=== PATIENT | male | born 1970 | race Caucasian/White ===

== ENCOUNTER 2020-12-09 09:18 | Outpatient (REF) | payer OTHER, SELFPAY ==
[2020-12-09 11:39] LABS: Alanine Aminotransferase 24 U/L (0-40); Albumin Level 4.3 g/dL (3.5-5.0); Alkaline Phosphatase 55 U/L (39-117); Anion Gap 15 (12-20); Aspartate Amino Transferase 22 U/L (5-37); Bilirubin Total 0.9 mg/dL (0.0-1.0); Blood Urea Nitrogen 14 mg/dL (9-16); Calcium 8.7 mg/dL (8.4-10.2); Carbon Dioxide 29 mmol/L (22-29); Chloride 104 mmol/L (96-108); Cholesterol 199 mg/dL; Estimated Glomerular Filt Rate > 60; Glucose Fasting 93 mg/dL (60-99); HDL Cholesterol 50 mg/dL; LDL Cholesterol Calculated 114 mg/dl; Potassium 4.6 mmol/L (3.3-5.1); Sodium 143 mmol/L (135-145); Total Protein 7.4 g/dL (6.5-8.0); Triglycerides 176 mg/dL
[2020-12-09 12:00] LABS: Prostate Specific Antigen Scr 0.34 ng/mL (<0.05-4.0); TSH reflex Free T4 3.51 uIU/mL (0.32-4.0)
== END 2020-12-09 09:19 | disposition home or self-care (01) ==
LOC: HO.HMGCLDS 09:18
PROVIDERS: PCP Nurse Practitioner Family; Visit Provider Nurse Practitioner Family
DX: Z00.00 Encounter for general adult medical examination without abnormal findings (principal); Z12.5 Encounter for screening for malignant neoplasm of prostate; Z80.42 Family history of malignant neoplasm of prostate
CPT/HCPCS: 36415; 80053; 80061; 84153; 84443

== ENCOUNTER 2021-12-09 08:13 | Outpatient (REF) | payer OTHER, SELFPAY ==
[2021-12-09 11:17] LABS: Appearance Urine HAZY; Color Urine YELLOW; Glucose Urine UA NEG (NEG); Leukocyte Esterase Urine NEG (NEG); Nitrite Urine NEG (NEG); PH 6.5 (5.0-8.0); Urine Blood NEG (NEG); Urine Ketones NEG (NEG); Urine Protein NEG (NEG-TRACE)
[2021-12-09 12:06] LABS: Alanine Aminotransferase 33 U/L (0-40); Albumin Level 4.2 g/dL (3.5-5.0); Alkaline Phosphatase 54 U/L (39-117); Anion Gap 13 (12-20); Aspartate Amino Transferase 21 U/L (5-37); Bilirubin Total 0.9 mg/dL (0.0-1.0); Blood Urea Nitrogen 14 mg/dL (9-16); Calcium 9.2 mg/dL (8.4-10.2); Carbon Dioxide 27 mmol/L (22-29); Chloride 107 mmol/L (96-108); Cholesterol 197 mg/dL; Estimated Glomerular Filt Rate > 60; Glucose Fasting 99 mg/dL (60-99); HDL Cholesterol 42 mg/dL; LDL Cholesterol Calculated 116 mg/dl; Potassium 4.3 mmol/L (3.3-5.1); Sodium 143 mmol/L (135-145); Total Protein 7.3 g/dL (6.5-8.0); Triglycerides 197 mg/dL
[2021-12-09 12:08] LABS: Prostate Specific Antigen Scr 0.33 ng/mL (<0.05-4.0); TSH reflex Free T4 1.98 uIU/mL (0.32-4.0)
== END 2021-12-09 08:14 | disposition home or self-care (01) ==
LOC: HO.HMGCLDS 08:13
PROVIDERS: PCP Nurse Practitioner Family; Visit Provider Nurse Practitioner Family
DX: Z00.00 Encounter for general adult medical examination without abnormal findings (principal); Z13.220 Encounter for screening for lipoid disorders; Z13.29 Encounter for screening for other suspected endocrine disorder; Z12.5 Encounter for screening for malignant neoplasm of prostate; Z80.42 Family history of malignant neoplasm of prostate
CPT/HCPCS: 36415; 80053; 80061; 81003; 84153; 84443

== ENCOUNTER 2022-03-04 07:48 | Outpatient (REF) | payer OTHER, SELFPAY ==
[2022-03-04 09:16] LABS: Hematocrit 43.1 % (42.0-52.0); Hemoglobin 14.6 g/dl (14.0-18.0); Mean Corpuscular HGB Conc 33.9 g/dl (31.0-36.0); Mean Corpuscular Hemoglobin 30.5 pg (27.0-33.0); Mean Platelet Volume 10.4 fL (9.4-12.4); Platelet Count 344 X10*3/uL (160-400); Red Blood Count 4.79 X10*6/uL (4.60-5.80); White Blood Count 9.5 X10*3/uL (4.8-10.8)
== END 2022-03-04 07:49 | disposition home or self-care (01) ==
LOC: HO.LAB 07:48
PROVIDERS: PCP Nurse Practitioner Family; Referring Provider Nurse Practitioner Family; Visit Provider Nurse Practitioner Family
DX: Z01.818 Encounter for other preprocedural examination (principal)
CPT/HCPCS: 36415; 85027; 99202

== ENCOUNTER 2022-05-11 13:00 | Outpatient (RCR) | payer OTHER, SELFPAY | END 2022-06-02 16:30 | disposition home or self-care (01) | LOC: HO.OT 13:00 | PROVIDERS: PCP Nurse Practitioner Family; Visit Provider Orthopaedic Surgery | DX: S69.81XA Other specified injuries of right wrist, hand and finger(s), initial encounter (principal); M25.521 Pain in right elbow; G89.29 Other chronic pain; M24.021 Loose body in right elbow | CPT/HCPCS: 97110; 97140; 97166 ==

== ENCOUNTER 2022-08-03 09:04 | Outpatient (REF) | payer OTHER, SELFPAY ==
[2022-08-03 11:19] LABS: MANUAL DIFF FLAG NO
[2022-08-03 11:21] LABS: Appearance Urine Turbid; Color Urine Yellow; Glucose Urine UA Negative (Negative); Leukocyte Esterase Urine Negative (Negative); Nitrite Urine Negative (Negative); PH 5.5 (5.0-9.0); Specific Gravity - Urine 1.025 (1.005-1.025); Urine Blood Negative (Negative); Urine Ketones Negative (Negative); Urine Protein Negative (Neg-Trace)
[2022-08-03 11:24] LABS: Basophils Absolute Auto 0.1 X10*3/uL (0.0-0.2); Basophils Percent Auto 0.5 % (0-2); Eosinophils Absolute Auto 0.2 X10*3/uL (0.0-0.4); Eosinophils Percent Auto 2.2 % (0-4); Hematocrit 46.3 % (42.0-52.0); Hemoglobin 15.4 g/dl (14.0-18.0); Imm Gran Abs Auto 0.07 X10*3/uL (0.00-0.03); Imm Gran Pct Auto 0.7 % (0.0-0.4); Lymphocytes Absolute Auto 2.4 X10*3/uL (1.2-4.9); Lymphocytes Percent Auto 22.8 % (20-40); Mean Corpuscular HGB Conc 33.3 g/dl (31.0-36.0); Mean Corpuscular Hemoglobin 29.8 pg (27.0-33.0); Mean Corpuscular Volume 89.7 fL (80.0-98.0); Mean Platelet Volume 11.2 fL (9.4-12.4); Monocytes Absolute Auto 0.9 X10*3/uL (0.1-1.2); Monocytes Percent Auto 8.5 % (2-11); Neutrophils Percent Auto 65.3 % (45-73); Platelet Count 266 X10*3/uL (160-400); Red Blood Count 5.16 X10*6/uL (4.60-5.80); Red Cell Distribution Width 12.5 % (11.0-16.0); White Blood Count 10.7 X10*3/uL (4.8-10.8)
[2022-08-03 12:08] LABS: Alanine Aminotransferase 34 U/L (0-40); Albumin Level 4.2 g/dL (3.5-5.0); Alkaline Phosphatase 60 U/L (39-117); Anion Gap 17 (12-20); Aspartate Amino Transferase 27 U/L (5-37); Blood Urea Nitrogen 14 mg/dL (9-16); Carbon Dioxide 25 mmol/L (22-29); Chloride 103 mmol/L (96-108); Cholesterol 206 mg/dL; Estimated Glomerular Filt Rate > 60; Glucose Fasting 106 mg/dL (60-99); HDL Cholesterol 44 mg/dL; LDL Cholesterol Calculated 114 mg/dl; Potassium 4.5 mmol/L (3.3-5.1); Sodium 140 mmol/L (135-145); TSH reflex Free T4 2.34 uIU/mL (0.32-4.0); Total Protein 7.5 g/dL (6.5-8.0); Triglycerides 241 mg/dL
== END 2022-08-03 09:05 | disposition home or self-care (01) ==
LOC: HO.HMGCLDS 09:04
PROVIDERS: PCP Nurse Practitioner Family; Visit Provider Nurse Practitioner Family
DX: I10 Essential (primary) hypertension (principal)
CPT/HCPCS: 36415; 80053; 80061; 81003; 84443; 85025

== ENCOUNTER 2022-10-05 10:31 | Outpatient (REF) | payer OTHER, SELFPAY ==
[2022-10-05 14:02] LABS: Cholesterol 216 mg/dL; HDL Cholesterol 48 mg/dL; LDL Cholesterol Calculated 143 mg/dl; Triglycerides 126 mg/dL
== END 2022-10-05 10:32 | disposition home or self-care (01) ==
LOC: HO.HMGCLDS 10:31
PROVIDERS: PCP Nurse Practitioner Family; Visit Provider Nurse Practitioner Family
DX: E78.1 Pure hyperglyceridemia (principal)
CPT/HCPCS: 36415; 80061

== ENCOUNTER 2022-10-19 11:32 | Day surgery (SDC) | payer OTHER, SELFPAY ==
[2022-10-13 15:37] VITALS: BMI 36.8
--- NOTE | 2022-10-18 10:33 | HO.ANESPROP2 ---
Documented by User: Olivia Albright NP 10/18/22 10:34 HPI - Anesthesia Eval Consult details Narrative: 52yo M for Colonoscopy PMFSH Active Problems Active Problems: All Active Problems (Updated 10/13/22 @ 15:37 by Melinda Gilman RN) Physical exam (Acute) Family hx of prostate cancer (Acute) Adverse effect of COVID-19 vaccine (Acute) Screening PSA (prostate specific antigen) (Acute) Screening for colon cancer (Acute) High triglycerides (Acute) Hypertension (Acute) Adenoma of right parotid gland (Acute) Past Medical History Medical History Adenoma of right parotid gland Arthritis Disease of salivary gland, unspecified Hearing loss Hypertension Postoperative nausea Family History Family History Father Prostate CA Surgical History Surgical History History of ear surgery History of surgery on arm Hx of elbow surgery Hx of parotidectomy Social History Social History Housing: House Are you a primary medicare insurance specialist to a significant other at home: No Do you presently have visiting nurse or other home services: No Alcohol intake: current Alcohol intake frequency: holidays/special occasions only Patient Tobacco Use Status: Former Tobacco user Quit Date: age 22 Tobacco use type: Cigarette Years Smoked: 4 e-Cigarette/Vaping Use: Never Used Second Hand Smoke Exposure: No Use of substances other than those prescribed or required for medical reasons: No Have you been hit, kicked, punched, or otherwise hurt by someone within the past year? If so, by whom?: No Are you DNR?: No Advance Directives: No Advance Directives Information Provided: Yes (brochure mailed) Advance Directives on File: No Recently lost weight without trying: No Eating poorly because of decreased appetite: No Nutrition Risks: No Nutritional Risk Poor oral hygiene: No service: No Current occupational status: retired Cognitive needs: No Hearing needs: No Vision needs: No Meds Allergies Allergy/AdvReac Type Severity Reaction Status Date / Time No Known Allergies Allergy Verified 09/12/22 08:10 Home Medications Medication Instructions Recorded Confirmed Last Taken Type multivitamin (Multiple Vitamins 1 tab PO DAILY 03/04/22 10/13/22 Unknown History tablet) Exam Exam Date and Time: October 18, 2022 1033 Height,Weight and Vital Signs: Height 6 ft Weight 123.377 kg Pertinent Lab Results Pertinent Lab Results: Laboratory Tests 08/03/22 08/03/22 09:14 09:14 WBC 10.7 Hgb 15.4 Hct 46.3 Plt Count 266 Sodium 140 Potassium 4.5 Chloride 103 Carbon Dioxide 25 BUN 14 Creatinine 0.89 Assessment and Plan Assessment Anesthesia Assessment: Chart Reviewed Documented by User: Jarret Skelton MD 10/19/22 13:18 PMFSH Past Medical History Medical History Adenoma of right parotid gland Arthritis Disease of salivary gland, unspecified Hearing loss Hypertension Postoperative nausea Family History Family History Father Prostate CA Family history of problems with anesthesia: No Surgical History Surgical History History of ear surgery History of surgery on arm Hx of elbow surgery Hx of parotidectomy History of Problems with Anesthesia: No Social History Social History Housing: House Are you a primary medicare insurance specialist to a significant other at home: No Do you presently have visiting nurse or other home services: No Alcohol intake: current Alcohol intake frequency: holidays/special occasions only Patient Tobacco Use Status: Former Tobacco user Quit Date: age 22 Tobacco use type: Cigarette Years Smoked: 4 e-Cigarette/Vaping Use: Never Used Second Hand Smoke Exposure: No Use of substances other than those prescribed or required for medical reasons: No Have you been hit, kicked, punched, or otherwise hurt by someone within the past year? If so, by whom?: No Are you DNR?: No Advance Directives: No Advance Directives Information Provided: Yes (brochure mailed) Advance Directives on File: No Recently lost weight without trying: No Eating poorly because of decreased appetite: No Nutrition Risks: No Nutritional Risk Poor oral hygiene: No service: No Current occupational status: retired Cognitive needs: No Hearing needs: No Vision needs: No Meds Allergies Allergy/AdvReac Type Severity Reaction Status Date / Time No Known Allergies Allergy Verified 09/12/22 08:10 Home Medications Medication Instructions Recorded Confirmed Last Taken Type multivitamin (Multiple Vitamins 1 tab PO DAILY 03/04/22 10/13/22 Unknown History tablet) Exam Airway Mallampati Class: IV TM Dist: >3cm Neck ROM: Full Heart: rrr Lungs: clear Assessment and Plan Final Anesthetic Review Family History of Problems with Anesthesia: No History of Problems with Anesthesia: No NPO: Yes ASA Class: II Final Preanesthetic Review: No Changes in Pt Med Stat, Meds/Allgs Chart Reviewed, Consent Obtained/Reviewed and Anes Risks/Benef Reviewed Patient Risk: Intermediate Procedure Risk: Low Anesthetic Plan Anesthetic Plan: MAC: Disposition: Standard PACU
--- NOTE | 2022-10-19 11:39 | MHC.SHP ---
Pre-Procedural Eval Section A Date of Service: 10/19/22 Section B Chief Complaint: screening Relevant Family History (Specify if Yes): No Relevant Social History: None Present Medications: see Short Stay Collaborative assessment Medical History: Significant History (Adenoma of right parotid gland Arthritis Disease of salivary gland, unspecified Hearing loss Hypertension Postoperative nausea) History of Previous Operations: Relevant previous surgery/procedure and date(s) (History of ear surgery History of surgery on arm Hx of elbow surgery Hx of parotidectomy) Allergies: Allergies Allergy/AdvReac Type Severity Reaction Status Date / Time No Known Allergies Allergy Verified 09/12/22 08:10 Review of Systems Sugical H&P ROS: Negative: Constitution, Cardiovascular, Respiratory, Neurological, Psychiatric, Hem-Onc, Allergic/Immunologic, Gastrointestinal, Genitourinary, Musculoskeletal, Integumentary, Endocrine and Eyes/Ears/Nose/Throat Exam Surgical H&P Exam: Normal: HEENT, Normal: Heart, Normal: Lungs, Normal: Extremities, Normal: Abdomen, Normal: Skin and Normal: Neurological Plan Diagnosis/Plan: Unchanged I have reviewed the history and physical and performed a pertinent physical examination on my patient. No changes have occurred unless specified. Time Spent With Patient Time: Total time managing care of this patient today ____ minutes.
[2022-10-19 12:51] VITALS: BP 135/81; PULSE 67; RESP 16; TEMP 36.7; O2SAT 98
[2022-10-19] MEDS: Lactated Ringers 1,000 ML 100 ML IVCONT (12:52)
--- NOTE | 2022-10-19 13:05 | W.PM.OPN ---
Operative Note Operative Note Date of Service: 10/19/22 Narrative: Operative Information Procedure Description: Colonoscopy Indication: screening Anesthesia: MAC COLONOSCOPY Instrument: Olympus variable stiffness pediatric scope 190L Colonoscopy Monitoring: Vital signs and clinical assessment, continuous EKG monitoring, Pulse oximetry, Carbon Dioxide monitoring and blood pressure monitoring were done throughout the procedure. Colon withdrawal time was 10 minutes. Procedure: The patient was placed in the left lateral decubitis position and pre-procedure medications were administered. After a digital rectal examination of the ano-rectum, the video colonoscope was inserted into the rectum and advanced through the colon to the cecum/TI. The colonoscope was slowly withdrawn in a retrograde panoramic fashion and the colon mucosa was carefully examined including a retroflexed view of the rectum. Findings and interventions are described below. Procedure Difficulty: easy Findings: Terminal Ileum-normal Cecum:normal Ascending Colon: normal Transverse Colon -normal Descending Colon:normal Sigmoid Colon: normal Rectum: Retroflexion with small internal hemorrhoids, grade I Anorectum - normal Colon preparation: [place] Bowel Preparation Scale Right colon; 2 Transverse colon: 2 Left colon; 2 (0 = Unprepared colon segment with mucosa not seen due to solid stool that cannot be cleared. 1 = Portion of mucosa of the colon segment seen, but other areas of the colon segment not well seen due to staining, residual stool and/or opaque liquid. 2 = Minor amount of residual staining, small fragments of stool and/or opaque liquid, but mucosa of colon segment seen well. 3 = Entire mucosa of colon segment seen well with no residual staining, small fragments of stool or opaque liquid) Impression and Post Procedure Diagnosis: internal hemorrhoids Plan: High fiber diet leaflet Avoid straining at stool, epsom salts and sitz bath, anusol supps or cream Repeat Colonoscopy in 10 years or earlier if clinically indicated Above findings were reviewed with the patient and relevant handouts were provided if indicated.
[2022-10-19 13:49] VITALS: BP 137/87; PULSE 78; RESP 20; TEMP 36.3; O2SAT 96
[2022-10-19 14:06] VITALS: BP 125/83; PULSE 69; RESP 20; O2SAT 98
[2022-10-19 14:21] VITALS: BP 122/78; PULSE 63; RESP 20; O2SAT 97
== END 2022-10-19 15:37 | disposition home or self-care (01) ==
PROVIDERS: PCP Nurse Practitioner Family; Visit Provider Internal Medicine Gastroenterology
PROC: 0DJD8ZZ Inspection of Lower Intestinal Tract, Via Natural or Artificial Opening Endoscopic (ICD-10-PCS; CPT 45378; principal; 2022-10-19 13:00)
DX: Z12.11 Encounter for screening for malignant neoplasm of colon (principal); K64.0 First degree hemorrhoids; K11.9 Disease of salivary gland, unspecified; Z90.89 Acquired absence of other organs; I10 Essential (primary) hypertension; H91.91 Unspecified hearing loss, right ear; Z79.899 Other long term (current) drug therapy; Z98.890 Other specified postprocedural states; Z87.891 Personal history of nicotine dependence
CPT/HCPCS: G0121

== ENCOUNTER → 2022-11-02 08:01 | Outpatient (BNVA) | payer OTHER, SELFPAY | PROVIDERS: PCP Nurse Practitioner Family; Referring Provider Nurse Practitioner Family; Visit Provider Nurse Practitioner Family | DX: K64.0 First degree hemorrhoids (principal); Z98.890 Other specified postprocedural states | CPT/HCPCS: 99212 ==

== ENCOUNTER 2022-12-13 10:40 | Outpatient (REF) | payer OTHER, SELFPAY ==
[2022-12-13 11:29] LABS: MANUAL DIFF FLAG NO
[2022-12-13 11:33] LABS: Basophils Percent Auto 0.5 % (0-2); Eosinophils Absolute Auto 0.2 X10*3/uL (0.0-0.4); Eosinophils Percent Auto 1.7 % (0-4); Hematocrit 45.7 % (42.0-52.0); Hemoglobin 15.3 g/dl (14.0-18.0); Imm Gran Abs Auto 0.07 X10*3/uL (0.00-0.03); Imm Gran Pct Auto 0.8 % (0.0-0.4); Lymphocytes Absolute Auto 2.4 X10*3/uL (1.2-4.9); Lymphocytes Percent Auto 27.3 % (20-40); Mean Corpuscular HGB Conc 33.5 g/dl (31.0-36.0); Mean Corpuscular Hemoglobin 29.8 pg (27.0-33.0); Mean Corpuscular Volume 89.1 fL (80.0-98.0); Mean Platelet Volume 10.5 fL (9.4-12.4); Monocytes Absolute Auto 0.8 X10*3/uL (0.1-1.2); Monocytes Percent Auto 9.1 % (2-11); Neutrophils Absolute Auto 5.4 x10*3/uL (2.0-8.3); Neutrophils Percent Auto 60.6 % (45-73); Platelet Count 368 X10*3/uL (160-400); Red Blood Count 5.13 X10*6/uL (4.60-5.80); Red Cell Distribution Width 12.4 % (11.0-16.0); White Blood Count 8.9 X10*3/uL (4.8-10.8)
[2022-12-13 12:33] LABS: Alanine Aminotransferase 68 U/L (0-40); Albumin Level 4.3 g/dL (3.5-5.0); Alkaline Phosphatase 55 U/L (39-117); Anion Gap 18 (12-20); Aspartate Amino Transferase 34 U/L (5-37); Blood Urea Nitrogen 14 mg/dL (9-16); Calcium 9.4 mg/dL (8.4-10.2); Carbon Dioxide 25 mmol/L (22-29); Chloride 102 mmol/L (96-108); Cholesterol 177 mg/dL; Estimated Glomerular Filt Rate > 60; Glucose Fasting 102 mg/dL (60-99); HDL Cholesterol 51 mg/dL; LDL Cholesterol Calculated 90 mg/dl; Potassium 4.5 mmol/L (3.3-5.1); Sodium 140 mmol/L (135-145); Total Protein 7.4 g/dL (6.5-8.0); Triglycerides 184 mg/dL
[2022-12-13 12:34] LABS: Prostate Specific Antigen Scr 0.38 ng/mL (<0.05-4.0)
[2022-12-13 13:59] LABS: Appearance Urine Turbid; Color Urine Yellow; Glucose Urine UA Negative (Negative); Leukocyte Esterase Urine Negative (Negative); Nitrite Urine Negative (Negative); Urine Blood Negative (Negative); Urine Ketones Negative (Negative); Urine Protein Negative (Neg-Trace)
== END 2022-12-13 10:41 | disposition home or self-care (01) ==
LOC: HO.HMGCLDS 10:40
PROVIDERS: PCP Nurse Practitioner Family; Visit Provider Nurse Practitioner Family
DX: Z00.00 Encounter for general adult medical examination without abnormal findings (principal); R74.8 Abnormal levels of other serum enzymes; Z80.42 Family history of malignant neoplasm of prostate; Z12.5 Encounter for screening for malignant neoplasm of prostate
CPT/HCPCS: 36415; 80053; 80061; 81003; 84153; 84443; 85025

== ENCOUNTER 2022-12-22 08:17 | Outpatient (REF) | payer OTHER, SELFPAY ==
--- NOTE | ~2022-12-22 | US_ITS ---
EXAMINATION: US ABDOMEN COMPLETE CLINICAL INFORMATION: Abnormal levels of other serum enzymes. COMPARISON: None TECHNIQUE: Real-time imaging of the abdominal viscera. Technically limited study secondary to body habitus. FINDINGS: PANCREAS: Largely obscured by overlying bowel gas. ABDOMINAL AORTA: The proximal, mid, and distal segments are normal in caliber. INFERIOR VENA CAVA: Visualized portions are normal. LIVER: The liver is normal in size. The liver contour is normal. There is diffuse increased liver parenchymal echogenicity. No focal hepatic lesion. There is no intrahepatic biliary duct dilatation seen. GALLBLADDER: Normal. The gallbladder is physiologically distended without evidence of stones, sludge, polyps, wall thickening or pericholecystic fluid. COMMON BILE DUCT: Normal in caliber measuring 0.3 cm in diameter. RIGHT KIDNEY: A duplicated collecting system is suspected. No hydronephrosis. No renal calculi or focal parenchymal lesions. The kidney measures 13.2 cm in maximum dimension. LEFT KIDNEY: Normal. No hydronephrosis. No renal calculi or focal parenchymal lesions. The kidney measures 11.9 cm in maximum dimension. SPLEEN: Normal. The spleen measures 10.3 cm in maximum dimension. FREE FLUID: None. US/US abdomen complete IMPRESSION: There is generalized increase in hepatic echotexture, consistent with fatty infiltration or hepatocellular disease. Please correlate clinically. No focal hepatic mass or intrahepatic biliary dilatation is seen.
== END 2022-12-22 08:18 | disposition home or self-care (01) ==
LOC: HO.HMGCX 08:17
PROVIDERS: PCP Nurse Practitioner Family; Visit Provider Nurse Practitioner Family
DX: R74.8 Abnormal levels of other serum enzymes (principal)
CPT/HCPCS: 76700

== ENCOUNTER 2023-06-12 10:12 | Outpatient (AMB) | payer OTHER, SELFPAY ==
[2023-06-12 10:31] VITALS: BP 130/78; PULSE 89; O2SAT 95; BMI 37.9
--- NOTE | 2023-06-12 10:31 | A.OFFPC_ITS ---
Vital Signs 06/12/23 10:31 Height 6 ft Weight 279 lb 4 oz BMI 37.9 BP 130/78 Blood Pressure Location Rt brachial Position Sitting Pulse 89 Pulse Source Pulse Oximeter Pulse Oximetry (%) 95 Oxygen Delivery Method Room Air Intake Visit Reasons: 6 Month follow up Allergies No Known Allergies Allergy (Verified 06/12/23 11:28) Medication List - Last Reconciled 06/12/23 by BALTAZAR Cope losartan-hydrochlorothiazide 100-12.5 mg 1 tab PO DAILY multivitamin (Multiple Vitamins tablet) 1 tab PO DAILY omega-3 acid ethyl esters 2 caps PO BID rosuvastatin 5 mg PO DAILY Tobacco use date assessed: 06/12/23 Dental Screening Dental Screen Date: 06/12/23 Did you have a dental visit in the last 12 months?: Yes Did you have a dental problem in the last 6 months where you did not have access to dental care?: No Was dental information given to patient?: Patient has dentist HPI 6 Month follow up HPI Details HTN: Blood pressure is stable, managed with losartan- hydrochlorothiazide 100-12.5mg. Denies chest pain, shortness of breath, headache, dizziness, and blurred vision. [facility] Medical History Adenoma of right parotid gland Arthritis Disease of salivary gland, unspecified Hearing loss Hypertension Postoperative nausea Surgical History History of ear surgery History of surgery on arm Hx of colonoscopy Hx of elbow surgery Hx of parotidectomy Family History Father Prostate CA Social History Housing: House Are you a primary manager care management to a significant other at home: No Do you presently have visiting nurse or other home services: No Alcohol intake: current Alcohol intake frequency: holidays/special occasions only Patient Tobacco Use Status: Former Tobacco user Quit Date: age 22 Tobacco use type: Cigarette Years Smoked: 4 e-Cigarette/Vaping Use: Never Used Second Hand Smoke Exposure: No service: No Current occupational status: retired Cognitive needs: No Hearing needs: No Vision needs: No Questionnaire Thrive Questionnaire Date Thrive assessed: 12/12/22 JESUS-7 AMB Questionnaire JESUS-7 Date JESUS - 7 assessed: 12/12/22 Source: Developed by Drs. Kermit Oviedo, Elizabeth Lancaster, Ned Harrell and colleagues, with an educational seb from [employer]. Review of Systems Const Reports as per HPI Physical exam (Primary Care) Vital Signs: Last Vital Signs Pulse 89 06/12/23 10:31 BP 130/78 06/12/23 10:31 Pulse Ox 95 06/12/23 10:31 Oxygen Delivery Method Room Air 06/12/23 10:31 BMI result Body Mass Index 37.9 Tobacco/Smoking Status: Tobacco use Status Tobacco use date assessed 06/12/23 06/12/23 10:36 Patient Tobacco Use Status Former Tobacco user 06/12/23 10:31 Tobacco use type Cigarette 06/12/23 10:31 e-Cigarette/Vaping Use Never Used 06/12/23 10:31 Thrive Assessment: Date of Thrive Assessment Date Thrive assessed 12/12/22 06/12/23 10:31 Const General: cooperative Nutritional Appearance: obese Orientation/consciousness: patient oriented x3 Resp Effort & Inspection: normal respiratory effort Auscultation: clear to auscultation bilaterally Cardio Rate: regular rate Rhythm: regular rhythm Heart sounds: S1 normal heart sound present and S2 normal heart sound present Neuro General: patient oriented x3 Psych Appearance: grossly normal Mental Status: mental status grossly normal Speech and movement: Normal speech and movement present Affect: normal affect Attitude: cooperative Thought process: Normal thought process present Thought content: Normal thought content present Insight: Good insight present (Psych) Judgement: Good judgement present (Psych) Assessment and Plan Assessment & Plan (1) Hypertension: Code(s): I10 - Essential (primary) hypertension Plan: BP is stable, labs ordered (2) Screening PSA (prostate specific antigen): Code(s): Z12.5 - Encounter for screening for malignant neoplasm of prostate Plan The patient agreed to the use of a medical assisting instructor for this encounter. Scribed for BALTAZAR Castillo by Winter Piper medical assisting instructor, on 06/12/2023 at 10:40 EST. Orders: Orders Comprehensive [place]. Panel Fast Today I10 - Essential (primary) hypertension Lipid Panel Today I10 - Essential (primary) hypertension TSH reflex Free T4 Today I10 - Essential (primary) hypertension Complete Blood Count Auto Diff Today I10 - Essential (primary) hypertension UA CC w/rflx Micro + Cult Today I10 - Essential (primary) hypertension Prostate Specific Antigen Scr Today Z12.5 - Encounter for screening for malignant neoplasm of prostate Coding Level of Care Code Est Pt Level 3 (07147) Diagnoses Hypertension I10 Screening PSA (prostate specific antigen) Z12.5
== END 2023-06-12 11:27 | disposition home or self-care (01) ==
PROVIDERS: PCP Nurse Practitioner Family; Visit Provider Nurse Practitioner Family
DX: I10 Essential (primary) hypertension (principal); Z12.5 Encounter for screening for malignant neoplasm of prostate
CPT/HCPCS: 99213

== ENCOUNTER 2023-11-13 12:55 | Outpatient (REF) | payer MEDICARE, OTHER, MEDICAID, SELFPAY | END 2023-11-13 12:56 | disposition home or self-care (01) | LOC: HO.HMGCX 12:55 | PROVIDERS: PCP Nurse Practitioner Family; Visit Provider Nurse Practitioner Family | DX: M25.551 Pain in right hip (principal) | CPT/HCPCS: 73502 ==

== ENCOUNTER 2023-11-23 08:52 | Outpatient (AMB) | payer MEDICARE, MEDICAID, OTHER, SELFPAY ==
[2023-11-23 08:53] VITALS: BMI 37.9
--- NOTE | 2023-11-23 08:53 | A.OFFVIS_ITS ---
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 The patient states that he 1st injured his right hip in 2006 when he fell off his roof while removing snow. Patient states that after time his ribs and hip improved. He states that he has recently begun using his elliptical machine at home as well as his treadmill. He put his treadmill on 10 degrees of incline which seemed to aggravate his pain. He denies any numbness or tingling in either of his legs. He denies any groin pain. Allergies No Known Allergies Allergy (Verified 11/23/23 08:57) Medication List - Last Reconciled 11/23/23 by Yasir Valenzuela MD losartan-hydrochlorothiazide 100-12.5 mg 1 tab PO DAILY multivitamin (Multiple Vitamins tablet) 1 tab PO DAILY omega-3 acid ethyl esters 2 caps PO BID rosuvastatin 5 mg PO DAILY PFSH Medical History Postoperative nausea Arthritis Disease of salivary gland, unspecified Hearing loss Adenoma of right parotid gland Hypertension Surgical History Hx of colonoscopy Hx of elbow surgery Hx of parotidectomy History of surgery on arm History of ear surgery Family History Father Prostate CA Social History Housing: House Are you a primary tree care foreman to a significant other at home: No Do you presently have visiting nurse or other home services: No Alcohol intake: current Alcohol intake frequency: holidays/special occasions only Patient Tobacco Use Status: Former Tobacco user Quit Date: age 22 Tobacco use type: Cigarette Years Smoked: 4 e-Cigarette/Vaping Use: Never Used Second Hand Smoke Exposure: No service: No Current occupational status: retired Cognitive needs: No Hearing needs: No Vision needs: No Physical Exam Vital Signs: BMI result Body Mass Index 37.9 Const Other: Well-nourished well-developed very friendly male awake alert and oriented x3 in no acute distress Extrem Other: Bilateral lower extremity examination shows good capillary refill, no skin l esions noted, normal sensation light touch Right hip examination shows minimal discomfort with range of motion, tenderness over his bursa Results Reviewed Results Reviewed: X-rays of the patient's right hip show no acute bony abnormalities Assessment & Plan Assessment & Plan (1) Greater trochanteric bursitis of right hip: Code(s): M70.61 - Trochanteric bursitis, right hip Plan Mr. Sutton presents with pain along the lateral aspect of his right hip most likely due to greater trochanteric bursitis. I had a lengthy discussion with the patient regarding the treatment options. The patient does not wish for a cortisone injection. I did give him a prescription for a Medrol Dosepak. Activity modifications and massage gun use were discussed at length with the patient. He will follow up with me on an as-needed basis should his symptoms not plateau at an unacceptable level over the next few weeks. Feel free to call me at any time should questions regarding his orthopedic management arise. I spent 20 minutes in reviewing the patient's records and imaging studies, seeing the patient and documenting in the medical record. Medications: New methylprednisolone (Medrol (Lazaro)) PO PER PKG DIR 21 ea 0RF Coding Level of Care Code New Pt Level 2 (06853) Diagnoses Greater trochanteric bursitis of right hip M70.61
== END 2023-11-23 09:21 | disposition home or self-care (01) ==
PROVIDERS: PCP Nurse Practitioner Family; Visit Provider Orthopaedic Surgery
DX: M70.61 Trochanteric bursitis, right hip (principal)
CPT/HCPCS: 99202

== ENCOUNTER → 2023-11-23 08:52 | Outpatient (BNVA) | payer MEDICARE, MEDICAID, OTHER, SELFPAY | PROVIDERS: PCP Nurse Practitioner Family; Visit Provider Orthopaedic Surgery | DX: M70.61 Trochanteric bursitis, right hip (principal) | CPT/HCPCS: 99202 ==

== ENCOUNTER 2023-12-13 08:57 | Outpatient (AMB) | payer MEDICARE, OTHER, MEDICAID, SELFPAY ==
--- NOTE | 2023-12-13 09:02 | MHC.PC.OV ---
Vital Signs 12/13/23 09:03 Height 6 ft Weight 277 lb BMI 37.6 BP 118/80 Blood Pressure Location Lt brachial Position Sitting Pulse 79 Pulse Source Pulse Oximeter Pulse Oximetry (%) 95 Oxygen Delivery Method Room Air Intake Visit Reasons: PE Allergies No Known Allergies Allergy (Verified 12/13/23 09:05) Tobacco use date assessed: 12/13/23 Dental Screening Dental Screen Date: 12/13/23 Did you have a dental visit in the last 12 months?: Yes Did you have a dental problem in the last 6 months where you did not have access to dental care?: No Was dental information given to patient?: Patient has dentist HPI PE HPI Details Pt is here for a PE. Labs have already been ordered. Colon screen is up to date. Due for PSA, this has been ordered. Denies dribbling with urination, weak stream, and frequent nocturia. PFS Medical History Postoperative nausea Arthritis Disease of salivary gland, unspecified Hearing loss Adenoma of right parotid gland Hypertension Surgical History Hx of colonoscopy Hx of elbow surgery Hx of parotidectomy History of surgery on arm History of ear surgery Family History Father Prostate CA Social History Housing: House Are you a primary infant childcare provider to a significant other at home: No Do you presently have visiting nurse or other home services: No Alcohol intake: current Alcohol intake frequency: holidays/special occasions only Patient Tobacco Use Status: Former Tobacco user Quit Date: age 22 Tobacco use type: Cigarette Years Smoked: 4 e-Cigarette/Vaping Use: Never Used Second Hand Smoke Exposure: No service: No Current occupational status: retired Cognitive needs: No Hearing needs: No Vision needs: No Questionnaire PHQ-9 Over the last 2 weeks, how often have you been bothered by any of the following problems? 1. Little interest or pleasure in doing things: not at all 2. Feeling down, depressed, or hopeless: not at all 3. Trouble falling or staying asleep, or sleeping too much: more than half the days 4. Feeling tired or having little energy: more than half the days 5. Poor appetite or overeating: not at all 6. Feeling bad about yourself - or that you are a failure or have let yourself or your family down: not at all 7. Trouble concentrating on things, such as reading the newspaper or watching television: not at all 8. Moving or speaking so slowly that other people could have noticed. Or the opposite - being so fidgety or restless that you have been moving around a lot more than usual: not at all 9. Thoughts that you would be better off or of hurting yourself in some way: not at all Total score: 4 Source: Developed by Drs. Kermit Oviedo, Elizabeth Lancaster, Ned Harrell and colleagues, with an educational seb from [employer]. Thrive Questionnaire Date Thrive assessed: 12/13/23 I am a: Patient What is your living situation today?: I have a steady place to live Within the past 12 months, did the food you bought not last and you didn't have the money to get more?: Never true Within the past 12 months, did you worry whether your food would run out before you got money to buy more?: Never true Do you have trouble paying for medicines?: No Do you have trouble getting transportation to medical appointments?: No Do you have trouble paying your heating and electricity bill?: No Do you have trouble taking care of your child, family member or friend?: No Do you have trouble with day-to-day activities such as bathing, preparing meals, shopping, managing finances, etc.?: Yes Are you currently unemployed and looking for a job?: No Are you interested in more education?: Yes THRIVE Score: 0 AUDIT C Alcohol Use Questionnaire (AUDIT-C) 1. How often do you have a drink containing alcohol?: Never Total Score: 0 JESUS-7 AMB Questionnaire JESUS-7 Date JESUS - 7 assessed: 12/13/23 Feeling nervous, anxious, or on edge: 0 = Not at all Not being able to stop or control worryin = Not at all Worrying too much about different things: 0 = Not at all Trouble relaxin = Several days Being so restless that it is hard to sit still: 0 = Not at all Becoming easily annoyed or irritable: 3 = Nearly every day Feeling afraid as if something awful might happen: 0 = Not at all Total JESUS-7 score (0-4 normal; 5-9 mild; 10-14 moderate; 15-21 severe): 4 Source: Developed by Drs. Kermit Oviedo, Elizabeth Lancaster, Ned Harrell and colleagues, with an educational seb from [employer]. Review of Systems Const Denies chills and Denies fever(s) Eyes Denies blurry vision ENT Denies vertigo, Denies dizziness and Denies sore throat Card Denies chest pain at rest, Denies chest pain with activity, Denies diaphoresis, Denies dyspnea and Denies dyspnea on exertion Resp Denies cough, Denies dyspnea, Denies dyspnea on exertion and Denies wheezing GI Denies abdominal pain, Denies melena, Denies hematochezia, Denies constipation, Denies diarrhea and Denies loose stools Denies hematuria Musc Denies numbness and Denies tingling Skin/Breast Denies lesions Neuro Denies vertigo, Denies dizziness, Denies numbness and Denies tingling Psych Denies anxiety, Denies depression, Denies homicidal ideation, Denies suicidal ideation and Denies other (substance abuse) Aller/Immun Denies wheezing Physical exam (Primary Care) Vital Signs: Last Vital Signs Pulse 79 12/13/23 09:03 BP 118/80 12/13/23 09:03 Pulse Ox 95 12/13/23 09:03 Oxygen Delivery Method Room Air 12/13/23 09:03 BMI result Body Mass Index 37.6 Tobacco/Smoking Status: Tobacco use Status Tobacco use date assessed 12/13/23 12/13/23 09:07 Patient Tobacco Use Status Former Tobacco user 12/13/23 09:02 Tobacco use type Cigarette 12/13/23 09:02 e-Cigarette/Vaping Use Never Used 12/13/23 09:02 PHQ-9: PHQ-9 Score PHQ-9: Total score 4 12/13/23 09:28 Thrive Assessment: Date of Thrive Assessment Date Thrive assessed 12/13/23 12/13/23 09:28 Const General: cooperative Nutritional Appearance: obese Orientation/consciousness: patient oriented x3 HENMT Head: Yes normal to inspection, Yes normocephalic and Yes atraumatic Ears: TM's normal bilaterally Eyes General: appearance normal, both eyes and all related structures Alignment and Position: alignment normal and position normal Neck Neck: Yes normal visual inspection and Yes no lymphadenopathy Thyroid: Thyroid normal Resp Effort & Inspection: normal respiratory effort Auscultation: clear to auscultation bilaterally Cardio Rate: regular rate Rhythm: regular rhythm Heart sounds: S1 normal heart sound present, S2 normal heart sound present and no murmurs GI Other: diastasis rectus Palpation (GI): Soft to palpation and nontender Auscultation: normal bowel sounds Male General Exam: Yes normal external exam Penis: normal penis Scrotum: scrotum normal, testes descended bilaterally and no inguinal hernias Testes: no testicular mass Skin Rashes: no rashes Neuro General: patient oriented x3, moves all extremities, no focal motor deficits and deep tendon reflexes 2+ bilaterally Romberg Test: Negative Psych Appearance: grossly normal Mental Status: mental status grossly normal Speech and movement: Normal speech and movement present Affect: normal affect Attitude: cooperative Thought process: Normal thought process present Thought content: Normal thought content present Insight: Good insight present (Psych) Judgement: Good judgement present (Psych) Assessment and Plan Assessment & Plan (1) Physical exam: Code(s): Z00.00 - Encounter for general adult medical examination without abnormal findings Plan: Labs already ordered Plan The patient agreed to the use of a nuclear medicine medical director for this encounter. Scribed for BALTAZAR Castillo by Winter Piper nuclear medicine medical director, on 12/13/2023 at 09:10 EST. Coding Level of Care Code Est Pt Prev Care 40-64y(67921) Diagnoses Physical exam Z00.00
[2023-12-13 09:03] VITALS: BP 118/80; PULSE 79; O2SAT 95; BMI 37.6
== END 2023-12-13 10:07 | disposition home or self-care (01) ==
PROVIDERS: PCP Nurse Practitioner Family; Visit Provider Nurse Practitioner Family
DX: Z00.00 Encounter for general adult medical examination without abnormal findings (principal)
CPT/HCPCS: 99396

== ENCOUNTER 2024-01-01 09:59 | Outpatient (REF) | payer MEDICARE, MEDICAID, OTHER, SELFPAY ==
[2024-01-01 13:33] LABS: Appearance Urine Clear; Color Urine Dark Yellow; Glucose Urine UA Negative (Negative); Leukocyte Esterase Urine Trace (Negative); Nitrite Urine Negative (Negative); Specific Gravity - Urine 1.025 (1.005-1.025); UMIC TRIGGER UACC YES; Urine Blood Negative (Negative); Urine Ketones Trace mg/dL (Negative); Urine Protein Negative (Neg-Trace)
[2024-01-01 13:37] LABS: Bacteria Urine None Seen (None Seen); Hyaline Casts Urine 0-2 /LPF (0-2); RBC Urine 0-2 /HPF (0-2); Squamous Epithelial Cell Urine 0-2 /HPF (0-2); WBC Urine 0-5 /HPF (0-5)
[2024-01-01 13:40] LABS: MANUAL DIFF FLAG NO
[2024-01-01 13:47] LABS: Basophils Percent Auto 0.6 % (0-2); Eosinophils Absolute Auto 0.2 X10*3/uL (0.0-0.4); Eosinophils Percent Auto 2.5 % (0-4); Hematocrit 44.1 % (42.0-52.0); Imm Gran Abs Auto 0.05 X10*3/uL (0.00-0.03); Imm Gran Pct Auto 0.7 % (0.0-0.4); Lymphocytes Absolute Auto 2.2 X10*3/uL (1.2-4.9); Lymphocytes Percent Auto 30.5 % (20-40); Mean Corpuscular Hemoglobin 30.2 pg (27.0-33.0); Mean Corpuscular Volume 88.9 fL (80.0-98.0); Mean Platelet Volume 10.5 fL (9.4-12.4); Monocytes Absolute Auto 0.8 X10*3/uL (0.1-1.2); Monocytes Percent Auto 10.8 % (2-11); Neutrophils Percent Auto 54.9 % (45-73); Platelet Count 292 X10*3/uL (160-400); Red Blood Count 4.96 X10*6/uL (4.60-5.80); Red Cell Distribution Width 12.8 % (11.0-16.0); White Blood Count 7.2 X10*3/uL (4.8-10.8)
[2024-01-01 14:08] LABS: Alanine Aminotransferase 42 U/L (0-40); Albumin Level 4.1 g/dL (3.5-5.0); Alkaline Phosphatase 47 U/L (39-117); Anion Gap 11 (12-20); Aspartate Amino Transferase 26 U/L (5-37); Bilirubin Total 0.9 mg/dL (0.0-1.0); Blood Urea Nitrogen 13 mg/dL (9-16); Carbon Dioxide 25 mmol/L (22-29); Chloride 105 mmol/L (96-108); Cholesterol 173 mg/dL (<200); Estimated Glomerular Filt Rate > 60; Glucose Fasting 108 mg/dL (60-99); HDL Cholesterol 52 mg/dL (>40); LDL Cholesterol Calculated 87 mg/dL (<100); Potassium 3.9 mmol/L (3.3-5.1); Sodium 137 mmol/L (135-145); Total Protein 7.2 g/dL (6.5-8.0); Triglycerides 172 mg/dL (<150)
[2024-01-01 14:16] LABS: Prostate Specific Antigen Scr 0.27 ng/mL (<0.05-4.0)
[2024-01-01 14:25] LABS: TSH reflex Free T4 1.59 uIU/mL (0.32-4.0)
== END 2024-01-01 10:00 | disposition home or self-care (01) ==
LOC: HO.HMGCLDS 09:59
PROVIDERS: PCP Nurse Practitioner Family; Visit Provider Nurse Practitioner Family
DX: I10 Essential (primary) hypertension (principal); Z12.5 Encounter for screening for malignant neoplasm of prostate
CPT/HCPCS: 36415; 80053; 80061; 81001; 84153; 84443; 85025

== ENCOUNTER 2024-04-03 12:38 | Outpatient (AMB) | payer OTHER, MEDICARE, MEDICAID, SELFPAY ==
--- NOTE | 2024-04-03 14:37 | MHC.OFFWIV ---
Intake Vital Signs 04/03/24 14:38 Height 6 ft BP 130/74 Blood Pressure Location Rt brachial Position Sitting Pulse 79 Pulse Source Pulse Oximeter Pulse Oximetry (%) 97 Oxygen Delivery Method Room Air Intake Visit Reasons: EP LT knee injury Intake Note: pt is here for left knee injury last week Patient Tobacco Use Status: Former Tobacco user Quit Date: age 22 Allergies No Known Allergies Allergy (Verified 04/03/24 14:39) Do you need a note to return to daycare/school/sports/work: No HPI HPI Comments History of Present Illness Details 53 y/o male patient who presents to walk in clinic with c/o left knee pain and swelling. Pt had injury at home few days ago. [facility] Medical History (Updated 01/01/24 @ 18:12 by BALTAZAR Cope) Fatty liver Postoperative nausea Arthritis Disease of salivary gland, unspecified Hearing loss Adenoma of right parotid gland Hypertension Surgical History Hx of colonoscopy Hx of elbow surgery Hx of parotidectomy History of surgery on arm History of ear surgery Family History Father Prostate CA Social History Housing: House Are you a primary veterinarian laboratory animal care to a significant other at home: No Do you presently have visiting nurse or other home services: No Alcohol intake: current Alcohol intake frequency: holidays/special occasions only Patient Tobacco Use Status: Former Tobacco user Quit Date: age 22 Tobacco use type: Cigarette Years Smoked: 4 e-Cigarette/Vaping Use: Never Used Second Hand Smoke Exposure: No service: No Current occupational status: retired Cognitive needs: No Hearing needs: No Vision needs: No Review of Systems Const All systems reviewed & are unremarkable except as noted in HPI and below Physical Exam Vital Signs: Last Vital Signs Pulse 79 04/03/24 14:38 BP 130/74 04/03/24 14:38 Pulse Ox 97 04/03/24 14:38 Oxygen Delivery Method Room Air 04/03/24 14:38 Const General: comfortable and no acute distress Nutritional Appearance: obese Orientation/consciousness: patient oriented x3 Neuro General: patient oriented x3, gait normal and moves all extremities Extrem Right lower extremity: normal to inspection and full ROM Left lower extremity: knee Details: normal to inspection, tenderness Location: of the patella and normal ROM; no swelling, no ecchymosis, no crepitus and no unusual warmth Psych Speech and movement: Normal speech and movement present Assessment & Plan Assessment & Plan (1) Left knee pain: Code(s): M25.562 - Pain in left knee Qualifiers: Chronicity: acute Qualified Code(s): M25.562 - Pain in left knee Plan: - Knee brace - Acetaminophen for pain relief - IceHot Orders: Orders PT Evaluation and Treatment Today M25.562 - Pain in left knee Coding Level of Care Code Est Pt Level 4 (51221) Diagnoses Acute pain of left knee M25.562 Chronicity: acute Time Spent (min) 20
[2024-04-03 14:38] VITALS: BP 130/74; PULSE 79; O2SAT 97
== END 2024-04-03 15:59 | disposition home or self-care (01) ==
PROVIDERS: PCP Nurse Practitioner Family; Visit Provider Nurse Practitioner Family
DX: M25.562 Pain in left knee (principal)
CPT/HCPCS: 99214

== ENCOUNTER 2024-04-03 15:22 | Outpatient (REF) | payer MEDICARE, MEDICAID, OTHER, SELFPAY ==
--- NOTE | ~2024-04-03 | XR_ITS ---
EXAMINATION: XR KNEE, LEFT CLINICAL INFORMATION: 53 year old male patient COMPARISON: None available. TECHNIQUE: Four views of the left knee. FINDINGS: No fracture or joint effusion. Alignment is anatomic. Joint spaces are maintained. No abnormal soft tissue calcification. XR/XR knee LT 4V IMPRESSION: Normal left knee.
== END 2024-04-03 15:23 | disposition home or self-care (01) ==
LOC: HO.HMGCX 15:22
PROVIDERS: PCP Nurse Practitioner Family; Visit Provider Nurse Practitioner Family
DX: M25.562 Pain in left knee (principal)
CPT/HCPCS: 73564

== ENCOUNTER 2024-04-22 09:53 | Outpatient (RCR) | payer OTHER, MEDICARE, MEDICAID, SELFPAY ==
--- NOTE | 2024-04-22 10:31 | MHC.PT.EP ---
[facility] [place] Office [place] Office [place] Office [address] [address] [phone] F: [phone] F: [phone] F: [phone] F: [phone] Physical Therapy Plan of Care Date of Evaluation: 04/22/24 Date of Surgery: n/a Diagnosis: pain in L knee Assessment: Patient is a 53 year old male presenting to PT with complaints of pain in his L knee. Pt reports onset of pain began a couple weeks ago due to bending down and feeling a pop in his knee. He presents today with impairments in pain, ROM, strength. Pt's current occupation is none, with baseline physical activities including ambulating, stair negotiation, ADLs, squatting. Pt expresses intermediate designer goal of reducing pain, and is motivated to work towards this in PT. Clinical presentation today is most consistent with signs and sx associated with L knee pain and pt will benefit from skilled PT 2 week x 4 weeks to address the following problems and impairments noted upon evaluation: pain, ROM, strength. These problems limit the patient with the following functional activities: ambulating, stair negotiation, ADLs, squatting. The prescribed treatment plan of care is medically necessary. Co-morbidities of none were identified and taken into considerations of plan of care. Pt was educated on HEP, role of PT, prognosis, POC. Frequency and Duration: The patient will be seen 2 x week x 4 weeks Short Term Goals: Pt will demonstrate improved pain at the end of the day to <3/10 in 2 weeks. Pt will demonstrate hip MMT strength at least 4/5 in 2 weeks for improved lumbopelvic stability. Sales Audit Clerk Goals: Pt will demonstrate improved LEFI score by 9 points in 4 weeks for improved functional mobility. Pt will demonstrate ability to negotiate stairs with min to no pain in 4 weeks for return to PLOF. Pt will demonstrate ability to ambulate with min to no pain in 4 weeks for return to PLOF. Treatment Plan: Modalities to reduce pain, spasms and effusion. Manual therapy to restore motion and function. Therapeutic exercise to improve strength and flexibility. Neuromuscular re-education for posture and balance. Therapeutic activities to return to functional activities of daily living. Electronically signed by: Krista Rodney, PT, DPT, ATC Please sign and return to therapist. Thank you for your referral.
--- NOTE | 2024-05-28 08:33 | MHC.PT.DC ---
[facility] [place] Office [place] Office [place] Office [address] [phone] F: [phone] F: [phone] F: [phone] F: [phone] Physical Therapy Discharge Report Diagnosis: pain in L knee Date of Surgery: n/a Date of Evaluation: 04/22/24 Date of Discharge: 05/28/24 Treatments to Date: 1 Cancellations to Date: 2 No Shows to Date: 0 Discharge Status: Discharge Summary: Pt cancelled all scheduled appointments since the eval and did not call to reschedule any in >30 days and therefore he is d/c. Electronically signed by: Krista Rodney, PT, DPT, ATC Please sign and return to therapist. Thank you for your referral.
== END 2024-05-28 08:33 | disposition home or self-care (01) ==
LOC: HO.PTCHIC 09:53
PROVIDERS: PCP Nurse Practitioner Family; Visit Provider Nurse Practitioner Family
DX: M25.562 Pain in left knee (principal)
CPT/HCPCS: 97110; 97161

== ENCOUNTER 2024-07-11 10:24 | Outpatient (AMB) | payer OTHER, MEDICARE, MEDICAID, SELFPAY ==
[2024-07-11 10:26] VITALS: BP 126/82; PULSE 75; TEMP 36.9; O2SAT 96; BMI 37.3
--- NOTE | 2024-07-11 10:26 | AM.OFFWIN_ITS ---
Intake Vital Signs 07/11/24 10:26 Height 6 ft Weight 275 lb BMI 37.3 BP 126/82 Blood Pressure Location Rt radial Position Sitting Pulse 75 Pulse Source Pulse Oximeter Temp 98.4 F Temp Source Oral Pulse Oximetry (%) 96 Oxygen Delivery Method Room Air Intake Visit Reasons: EP-body ache Intake Note: pt c/o body aches, stiffness, lack of energy. Started in May. Patient Tobacco Use Status: Former Tobacco user Allergies No Known Allergies Allergy (Verified 07/11/24 10:32) Do you need a note to return to daycare/school/sports/work: No HPI HPI Comments History of Present Illness Details Patient is a 53-year-old male complaining of 7-8 weeks of fatigue and full-body joint pain. He denies any knowledge of a tick bites or a rashes, fevers, night sweats, weight loss. He just states that he does not feel right. He has been taking ibuprofen here and there for the joint pain without much relief. He states he does spend time camping and spends a fair amount of time outdoors in the summer. [facility] Medical History (Updated 07/11/24 @ 10:51 by Noa Aguilar PA-C) Fatty liver Postoperative nausea Arthritis Disease of salivary gland, unspecified Hearing loss Adenoma of right parotid gland Hypertension Surgical History Hx of colonoscopy Hx of elbow surgery Hx of parotidectomy History of surgery on arm History of ear surgery Family History Father Prostate CA Social History Housing: House Are you a primary nurse care manager to a significant other at home: No Do you presently have visiting nurse or other home services: No Alcohol intake: current Alcohol intake frequency: holidays/special occasions only Patient Tobacco Use Status: Former Tobacco user Tobacco use type: Cigarette Years Smoked: 4 e-Cigarette/Vaping Use: Never Used Second Hand Smoke Exposure: No service: No Current occupational status: retired Cognitive needs: No Hearing needs: No Vision needs: No Review of Systems Const All systems reviewed & are unremarkable except as noted in HPI and below Physical Exam Vital Signs: Last Vital Signs Temp 98.4 F 07/11/24 10:26 Pulse 75 07/11/24 10:26 BP 126/82 07/11/24 10:26 Pulse Ox 96 07/11/24 10:26 Oxygen Delivery Method Room Air 07/11/24 10:26 BMI result Body Mass Index 37.3 Const General: cooperative, healthy appearing, comfortable, no acute distress and well developed Orientation/consciousness: patient oriented x3 Limitations: no limitations HEENT Head: Yes normal to inspection Ears: hearing grossly normal bilaterally General nose exam: Normal external nose present Face and sinus: Yes normal facial exam Eyes General: appearance normal, both eyes and all related structures Neck Neck: Yes normal visual inspection and Yes full ROM Resp Effort & Inspection: normal respiratory effort and able to speak in complete sentences Skin General skin exam: no rashes or lesions noted Neuro General: patient oriented x3 Extrem General: Yes normal to inspection Assessment & Plan Assessment & Plan (1) Fatigue: Code(s): R53.83 - Other fatigue Qualifiers: Fatigue type: unspecified Qualified Code(s): R53.83 - Other fatigue Plan: See below (2) Joint pain: Code(s): M25.50 - Pain in unspecified joint Qualifiers: Joint pain location: shoulder Laterality: bilateral Qualified Code(s): M25.511 - Pain in right shoulder; M25.512 - Pain in left shoulder Plan: See below Plan Discussed with pt's PCP, will get labs to rule out Lyme or other tick-borne illness as well as thyroid issue and anemia etc.. Patient understands if everything is negative he will need to follow up with PCP for further workup. Orders: Orders Complete Blood Count Auto Diff Today M25.50 - Pain in unspecified joint, R53.83 - Other fatigue Comprehensive Met. Panel Today M25.50 - Pain in unspecified joint, R53.83 - Other fatigue Lyme IgG/IgM w/reflex to WB Today M25.50 - Pain in unspecified joint, R53.83 - Other fatigue Tick-borne Disease Molecular Today M25.50 - Pain in unspecified joint, R53.83 - Other fatigue TSH reflex Free T4 Today M25.50 - Pain in unspecified joint, R53.83 - Other fatigue Coding Level of Care Code Est Pt Level 4 (53879) Diagnoses Fatigue, unspecified type R53.83 Fatigue type: unspecified Pain of both shoulder joints M25.511; M25.512 Joint pain location: shoulder Laterality: bilateral
== END 2024-07-11 11:06 | disposition home or self-care (01) ==
PROVIDERS: PCP Nurse Practitioner Family; Visit Provider Physician Assistant
DX: R53.83 Other fatigue (principal); M25.511 Pain in right shoulder; M25.512 Pain in left shoulder
CPT/HCPCS: 99214

== ENCOUNTER 2024-07-11 10:46 | Outpatient (REF) | payer OTHER, MEDICARE, MEDICAID, SELFPAY ==
[2024-07-11 13:28] LABS: MANUAL DIFF FLAG NO
[2024-07-11 13:41] LABS: Basophils Percent Auto 0.6 % (0-2); Eosinophils Absolute Auto 0.2 X10*3/uL (0.0-0.4); Eosinophils Percent Auto 2.2 % (0-4); Hemoglobin 15.3 g/dl (14.0-18.0); Imm Gran Pct Auto 1.4 % (0.0-0.4); Lymphocytes Absolute Auto 2.1 X10*3/uL (1.2-4.9); Lymphocytes Percent Auto 29.7 % (20-40); Mean Corpuscular Hemoglobin 30.5 pg (27.0-33.0); Mean Corpuscular Volume 89.8 fL (80.0-98.0); Mean Platelet Volume 10.3 fL (9.4-12.4); Monocytes Absolute Auto 0.7 X10*3/uL (0.1-1.2); Neutrophils Percent Auto 56.1 % (45-73); Platelet Count 310 X10*3/uL (160-400); Red Blood Count 5.01 X10*6/uL (4.60-5.80); Red Cell Distribution Width 13.1 % (11.0-16.0); White Blood Count 7.2 X10*3/uL (4.8-10.8)
[2024-07-11 14:16] LABS: TSH reflex Free T4 1.46 uIU/mL (0.32-4.0)
[2024-07-11 14:24] LABS: Alanine Aminotransferase 39 U/L (0-40); Albumin Level 4.3 g/dL (3.5-5.0); Alkaline Phosphatase 54 U/L (39-117); Anion Gap 14 (12-20); Aspartate Amino Transferase 27 U/L (5-37); Bilirubin Total 0.7 mg/dL (0.0-1.0); Blood Urea Nitrogen 10 mg/dL (9-16); Calcium 9.4 mg/dL (8.4-10.2); Carbon Dioxide 25 mmol/L (22-29); Chloride 106 mmol/L (96-108); Estimated Glomerular Filt Rate > 60; Glucose Random 105 mg/dL (60-115); Potassium 4.2 mmol/L (3.3-5.1); Sodium 141 mmol/L (135-145); Total Protein 7.5 g/dL (6.5-8.0)
[2024-07-12 07:34] LABS: Lyme Abs Screen <0.90 index
[2024-07-12 23:18] LABS: A. Phagocytphilium DNA,RT-PCR NOT DETECTED (NOT DETECTED); Babesia Microti DNA, RT-PCR NOT DETECTED (NOT DETECTED); Borrelia Miyamotoi,DNA RT-PCR NOT DETECTED (NOT DETECTED); E.Chaffeensis DNA RT-PCR NOT DETECTED (NOT DETECTED); Lyme(Borrelia ssp)DNA RT-PCR NOT DETECTED (NOT DETECTED)
== END 2024-07-11 10:47 | disposition home or self-care (01) ==
LOC: HO.HMGCLDS 10:46
PROVIDERS: PCP Nurse Practitioner Family; Visit Provider Physician Assistant
DX: M25.50 Pain in unspecified joint (principal); R53.83 Other fatigue
CPT/HCPCS: 36415; 80053; 84443; 85025; 86617; 86618; 87468; 87469; 87478; 87484; 87798

== ENCOUNTER 2024-08-12 10:19 | Outpatient (REF) | payer SELFPAY ==
--- NOTE | 2024-08-13 13:00 | MHC.AU.HA3 ---
Hearing Instrument Follow-Up- Binaural Date of Visit: 08/13/24 Right Ear: Make, Model, Color, Serial Number: Mickey Templeton [id number] [facility] [id number] Kiln Operator Helper Repair Warranty: 11/14/2022 Kiln Operator Helper Loss and Damage Warranty: 11/14/2022 [facility] Service Plan: 10/29/2020 Battery Size: 312 [employer] Sales Engineer/Slim Tube: Earmold/Dome/CShell/SlimTip: Type of Wax Guard: Dispensed By: [facility] Date of Fittin10/29/2019 Follow-Up Summary: Right aid dropped off . No improvement with maintenance performed. Recommended send to movie producer for repair. Pt interested in new hearing aid. Would be eligible 10/29/24 if still [facility] active. Advised updated eval needed, pt will contact PCP for order. Pt. requested hold off on sending aid out, wait to discuss new aid. His aid is stored here in office. Recommendations: Recommendations : Schedule hearing test. Diagnosis Code(s): Primary Diagnosis: H90.3 Signature: Provider: Gamaliel Salvador, [facility]
== END 2024-08-12 10:20 | disposition home or self-care (01) ==
LOC: HO.HAP 10:19
PROVIDERS: Visit Provider Nurse Practitioner Family
DX: Z13.89 Encounter for screening for other disorder (principal)

== ENCOUNTER 2024-09-03 08:43 | Outpatient (REF) | payer OTHER, MEDICARE, MEDICAID, SELFPAY ==
--- NOTE | 2024-09-03 10:47 | MHC.AU.MED ---
Medical Clearance for Hearing Instrumentation Date: 09/03/24 Patient Name: Trey Sutton Jr Date of : 1970 Primary Care Provider: David Clifton [facility] We have seen your patient on 09/03/24 and have determined that they are a candidate for amplification (See accompanying report). Specifically, they would benefit from: Hearing aid use in both ears There is a statute that addresses Medical Evaluation Requirements prior to fitting a patient with a hearing aid. According to [place] statute 265 CMR:6.03(1), (a) General. Except as provided in 265 CMR 6.03(1)(b), a hearing healthcare practitioner shall not sell a hearing aid unless the prospective user has presented to the hearing healthcare practitioner a written statement signed by a licensed physician that states that the patient's hearing loss has been medically evaluated and the patient may be considered a candidate for a hearing aid. The medical evaluation must have taken place within the preceding six months. Please note: Due to the [place] Statute referenced above, we cannot accept a signature other than that of a licensed physician. PHARMACY CLINICAL SPECIALIST and PA signatures cannot be accepted. I am in agreement with the above recommendation. There is no medical contraindication for hearing instrumentation. Physician Signature Date Physician Name (Printed)
--- NOTE | 2024-09-03 11:32 | MHC.AU.HA1 ---
Hearing Aid Evaluation Date of Visit: 09/03/24 Historical Information: Description of Hearing: Right Ear: Moderate sloping to severe mixed hearing loss Left Ear: Within normal sloping to moderate sensorineural hearing loss rising to normal hearing Current personal amplification information: Right Ear: Mickey Mari iQ 1600 ITC fit in October 2019 Summary: Current DAVIS , would need to be sent out for accident examiner repair. Opted to trial new DAVIS due to age of current device. Never fully acclimated to DAVIS, never wore consistently, too much background noise. Questioned OTC devices for cheaper with good reviews. Explained differences, importance of consistent use. Wants to trial new DAVIS if covered by insurance. Discussed trialing bilateral RITE HAs. However, reportedly does not like/want anything behind ear. Tried dummy aid on in office, felt like wearing a huge hat, unsure if he would be able to tolerate. Also felt two HAs would be too much to manage. Ultimately opted to pursue only right DAVIS, same as previous style. Requested rechargeable. Discussed bluetooth, no interest at this time, has Android phone. Will need to submit PA to insurance pending medical clearance, <5 years since previously fit. Hearing Aid Prescription: Based on the individual?s shared listening needs, communication environments, dexterity, desire for connectivity, and personal preferences, the following prescription for amplification has been made: Right ear: Make, Model, Color: Mickey Dhillon AI 20 ITC-R Color: [place] Battery Size: Rechargeable Accessories/Assistive Technology: Tank Wagon Operator Plan of Care: Patient wishes to purchase hearing aids as prescribed Action Taken/Action Needed: Prior authorization to be requested. Medical Clearance to be requested from PCP/ENT. Hearing Instrument Fitting to be scheduled when materials arrive Primary Diagnosis: H90.A22 SNHL, Unilateral, Left Ear, W/Restricted Contralateral Hearing Secondary Diagnosis: H90.A31 Mixed HL, Unilateral Right Ear, W/Restricted Contralateral Signature: Provider: Gamaliel Cortez, [facility]
== END 2024-09-03 08:44 | disposition home or self-care (01) ==
LOC: HO.SH 08:43
PROVIDERS: Visit Provider Nurse Practitioner Family
DX: Z01.118 Encounter for examination of ears and hearing with other abnormal findings (principal); H90.A22 Sensorineural hearing loss, unilateral, left ear, with restricted hearing on the contralateral side; H90.A31 Mixed conductive and sensorineural hearing loss, unilateral, right ear with restricted hearing on the contralateral side
CPT/HCPCS: 92557; 92590; V5275

== ENCOUNTER 2024-10-15 12:36 | Outpatient (REF) | payer OTHER, MEDICARE, MEDICAID, SELFPAY ==
--- NOTE | 2024-10-15 15:33 | MHC.AU.HA2 ---
Hearing Instrument Fitting- Adult- Binaural Date of Visit: 10/15/24 Hearing Instruments Dispensed: Right Ear: Make, Model, Color, Serial Number: Mickey PLUMMER 20 ITC-R SN: [id number] Color: Oblong Paper Counter Repair Warranty: 10/31/2027 Paper Counter Loss and Damage Warranty: 10/31/2027 [facility] Service Plan: 10/15/2025 Battery Size: Rechargeable Type of Wax Guard: HearClear Accessories/Assistive Technology: Mickey SL 2.0 Handmade Tile Artist Custom SN: [id number] Summary of Fitting: Ran feedback analyzer and real ear measures. Slight echo at real ear settings, decreased low frequencies slightly. Otherwise comfortable. Reviewed care, use, and rechargeability including manually turning on/off, VC use, and changing wax guard. When discussing manual on/off using push button, noticed push button cover was missing, difficult to push button without cover, needs to be sent back to Mickey for repair. Sent DAVIS to [employer]. *Did not bill for DAVIS or services as DAVIS was not dispensed. Will bill for DAVIS and all services when Trey picks up the DAVIS from repair, will need to sign MH Delivery Receipt at that time. Recommendations: Patient will be contacted when DAVIS is back from repair. Diagnosis Code(s): Primary Diagnosis: H90.A22 SNHL, Unilateral, Left Ear, W/Restricted Contralateral Hearing Secondary Diagnosis: H90.A31 Mixed HL, Unilateral Right Ear, W/Restricted Contralateral Signature: Provider: Gamaliel Cortez, [facility]
== END 2024-10-15 12:37 | disposition home or self-care (01) ==
LOC: HO.HAP 12:36
PROVIDERS: Visit Provider Nurse Practitioner Family
DX: Z13.89 Encounter for screening for other disorder (principal)

== ENCOUNTER 2024-10-24 16:11 | Outpatient (REF) | payer OTHER, MEDICARE, MEDICAID, SELFPAY | END 2024-10-24 16:12 | disposition home or self-care (01) | LOC: HO.HAP 16:11 | PROVIDERS: Visit Provider Nurse Practitioner Family | DX: Z46.1 Encounter for fitting and adjustment of hearing aid (principal); H90.A31 Mixed conductive and sensorineural hearing loss, unilateral, right ear with restricted hearing on the contralateral side; H90.A22 Sensorineural hearing loss, unilateral, left ear, with restricted hearing on the contralateral side | CPT/HCPCS: V5011; V5020; V5241; V5255 ==

== ENCOUNTER 2025-01-13 10:55 | Outpatient (AMB) | payer OTHER, MEDICARE, MEDICAID, SELFPAY ==
--- NOTE | 2025-01-13 10:57 | A.OFFPC_ITS ---
Vital Signs 01/13/25 11:01 Height 6 ft Weight 272 lb BMI 36.9 BP 130/72 Blood Pressure Location Lt brachial Position Sitting Pulse 75 Pulse Source Pulse Oximeter Pulse Oximetry (%) 96 Oxygen Delivery Method Room Air Intake Visit Reasons: PE Intake Note: pt is here for PE Agricultural Engineering Technologist Required: No Accompanied by: Self / Same As Patient Allergies No Known Allergies Allergy (Verified 01/13/25 11:52) Medication List - Last Reconciled 01/13/25 by ATUL Cope losartan-hydrochlorothiazide 100-12.5 mg 1 tab PO DAILY multivitamin (Multiple Vitamins tablet) 1 tab PO DAILY omega-3 acid ethyl esters 2 caps PO BID rosuvastatin 5 mg PO DAILY Tobacco use date assessed: 01/13/25 Dental Screening Dental Screen Date: 01/13/25 Did you have a dental visit in the last 12 months?: Yes Did you have a dental problem in the last 6 months where you did not have access to dental care?: No Was dental information given to patient?: Patient has dentist HPI PE HPI Details History of Present Illness The patient is a 54-year-old male presenting for a wellness visit focused on weight management and obesity. He denies symptoms such as chest pain, shortness of breath, abdominal pain, blood in stool, constipation, diarrhea, and urinary complications. Previously, the patient declined a digital rectal exam but agreed to a PSA test, and has an up-to-date colon cancer screening. The discussion centered on achieving weight loss due to his current morbid obesity with the prospect of reducing medication intake correlating with weight reduction. No past interventions for obesity were discussed, but the patient is motivated to lose weight and improve health outcomes. Health Maintenance - Colon cancer screening: Up to date - PSA test: Planned - Weight management discussion: Emphasiz ed importance of weight loss due to current morbid obesity Social History - Employment and lifestyle factors impac ting weight management were not discussed in the conversation. Review of Systems - Constitutional: Denies weight loss or gain other than discussed obesity. - Respiratory: Denies shortness of breat h. - Cardiovascular: Denies chest pain. - Gastrointestinal: Denies abdominal paco n, blood in stool, constipation, diarrhea. - Genitourinary: Denies urinary symptoms . - Psychiatric: Denies suicidal or homici chidi ideation; does not want a therapist. Physical Exam General: Cooperative, healthy appearing, comfortable, no acute distress and well developed, morbidly obese Orientation: Patient oriented x3 Limitations: No limitations Head: Normal to inspection Ears: Hearing grossly normal bilaterally Nose: Normal external nose present Face and sinus: Normal facial exam Eyes: Appearance normal, both eyes and all related structures Neck: Normal visual inspection and Yes full ROM Respiratory: Normal respiratory effort and able to speak in complete sentences. Clear to auscultation bilaterally Cardiovascular: Regular rate and rhythm. Normal S1 and S2 GI: Normal to inspection. Soft to palpation and nontender Skin: No rashes or lesions noted Neuro: Patient oriented x3 Extremities: Normal to inspection Results Plan The primary concern is managing the patient's morbid obesity during this wellness visit. We emphasized weight management's role in improving overall health and potentially reducing medication dependence. He declined a digital rectal examination in favor of non-invasive PSA testing for prostate screening. Future appointments will evaluate progress in weight loss efforts and adjustments to his medication regimen. Discussion Notes During our discussion, I explained the health risks associated with morbid obesity and the benefits of weight loss, including the possibility of reducing medication. We acknowledged his decision to decline a digital rectal exam for prostate screening, agreeing on a PSA test instead. We decided on focusing on lifestyle changes to facilitate weight loss, understanding it may improve his health and medication regimen. We discussed follow-up visits to monitor his progress and make necessary adjustments. Patient Instructions - Focus on weight loss through lifestyle changes. - Undergo PSA test as planned. - Monitor weight and note any changes in symptoms. - Contact the clinic if new or worsening symptoms occur. [facility] Medical History Fatty liver Postoperative nausea Arthritis Disease of salivary gland, unspecified Hearing loss Adenoma of right parotid gland Hypertension Surgical History Hx of colonoscopy Hx of elbow surgery Hx of parotidectomy History of surgery on arm History of ear surgery Family History Father Prostate CA Social History Housing: House Are you a primary healthcare facility administrator to a significant other at home: No Do you presently have visiting nurse or other home services: No Alcohol intake: current Alcohol intake frequency: holidays/special occasions only Patient Tobacco Use Status: Former Tobacco user Tobacco use type: Cigarette Years Smoked: 4 e-Cigarette/Vaping Use: Never Used Second Hand Smoke Exposure: No service: No Current occupational status: retired Cognitive needs: No Hearing needs: No Vision needs: No Questionnaire PHQ-9 Over the last 2 weeks, how often have you been bothered by any of the following problems? 1. Little interest or pleasure in doing things: more than half the days 2. Feeling down, depressed, or hopeless: more than half the days 3. Trouble falling or staying asleep, or sleeping too much: more than half the days 4. Feeling tired or having little energy: more than half the days 5. Poor appetite or overeating: more than half the days 6. Feeling bad about yourself - or that you are a failure or have let yourself or your family down: more than half the days 7. Trouble concentrating on things, such as reading the newspaper or watching television: more than half the days 8. Moving or speaking so slowly that other people could have noticed. Or the opposite - being so fidgety or restless that you have been moving around a lot more than usual: more than half the days 9. Thoughts that you would be better off or of hurting yourself in some way: more than half the days Total score: 18 Depression Screening Interpretation: Positive (denies any SI or HI, refuses therapist. ) Depression Screening Follow-up: Existing condition Depression Screening Done: Yes 01064 - PHQ-9 Billing: Yes Source: Developed by Drs. Kermit Oviedo, Elizabeth Lancaster, Ned Harrell and colleagues, with an educational seb from [employer]. Thrive Questionnaire Date Thrive assessed: 01/13/25 I am a: Patient What is your living situation today?: I have a steady place to live Within the past 12 months, did the food you bought not last and you didn't have the money to get more?: Sometimes True Within the past 12 months, did you worry whether your food would run out before you got money to buy more?: Sometimes True Do you have trouble paying for medicines?: Yes Do you have trouble getting transportation to medical appointments?: Yes Do you have trouble paying your heating and electricity bill?: Yes Do you have trouble taking care of your child, family member or friend?: I choose not to answer this question Do you have trouble with day-to-day activities such as bathing, preparing meals, shopping, managing finances, etc.?: Yes Are you currently unemployed and looking for a job?: I choose not to answer this question Are you interested in more education?: Yes Please select the resources that you would like help with: Utilities Currently or been in a relationship where the following occur: No concerns reported THRIVE Score: 4 AUDIT C Alcohol Use Questionnaire (AUDIT-C) 1. How often do you have a drink containing alcohol?: Never 3. How often do you have six or more drinks on one occasion?: Never Total Score: 0 Score Reviewed/Action Taken: Yes JESUS-7 AMB Questionnaire JESUS-7 Date JESUS - 7 assessed: 01/13/25 Feeling nervous, anxious, or on edge: 1 = Several days Not being able to stop or control worryin = Several days Worrying too much about different things: 1 = Several days Trouble relaxin = Several days Being so restless that it is hard to sit still: 1 = Several days Becoming easily annoyed or irritable: 2 = More than half the days Feeling afraid as if something awful might happen: 1 = Several days Total JESUS-7 score (0-4 normal; 5-9 mild; 10-14 moderate; 15-21 severe): 8 Source: Developed by Drs. Kermit Oviedo, Elizabeth Lancaster, Ned Harrell and colleagues, with an educational seb from [employer]. JESUS-7 Assessment Billing JESUS-7 Assessment Tool: JESUS-7 Assessment 10028 (denies any si or hi, does not want a therapist) Physical exam (Primary Care) Vital Signs: Last Vital Signs Pulse 75 01/13/25 11:01 BP 130/72 01/13/25 11:01 Pulse Ox 96 01/13/25 11:01 Oxygen Delivery Method Room Air 01/13/25 11:01 BMI result Body Mass Index 36.9 Tobacco/Smoking Status: Tobacco use Status Tobacco use date assessed 01/13/25 01/13/25 11:09 Patient Tobacco Use Status Former Tobacco user 01/13/25 11:00 Tobacco use type Cigarette 01/13/25 11:00 e-Cigarette/Vaping Use Never Used 01/13/25 11:00 PHQ-9: PHQ-9 Score PHQ-9: Total score 18 01/13/25 11:09 Depression Screening Interpretation: Positive (denies any SI or HI, refuses therapist. ) Depression Screening Follow-up: Existing condition Thrive Assessment: Date of Thrive Assessment Date Thrive assessed 01/13/25 01/13/25 11:09 Currently or been in a relationship where the following occur: No concerns reported Coding Level of Care Code Est Pt Prev Care 40-64y(46608) Diagnoses Physical exam Z00. Screening PSA (prostate specific antigen) Z12.5 Additional Codes PHQ-9 - 12083 - PHQ-9 Billing: Yes ([id number]) JESUS-7 Assessment Billing - JSEUS-7 Assessment Tool: JESUS-7 Assessment 09235 ([id number]) Assessment & Plan Assessment & Plan (1) Physical exam: Code(s): Z00.00 - Encounter for general adult medical examination without abnormal findings Category: Medical (2) Screening PSA (prostate specific antigen): Code(s): Z12.5 - Encounter for screening for malignant neoplasm of prostate Category: Medical Plan . Orders: Orders Prostate Specific Antigen Scr Today Z12.5 - Encounter for screening for malignant neoplasm of prostate Complete Blood Count Auto Diff Today Z00.00 - Encounter for general adult medical examination without abnormal findings Comprehensive [place]. Panel Fast Today Z00.00 - Encounter for general adult medical examination without abnormal findings TSH reflex Free T4 Today Z00.00 - Encounter for general adult medical examination without abnormal findings UA CC w/rflx Micro + Cult Today Z00.00 - Encounter for general adult medical examination without abnormal findings Lipid Panel Today Z00.00 - Encounter for general adult medical examination without abnormal findings
[2025-01-13 11:01] VITALS: BP 130/72; PULSE 75; O2SAT 96; BMI 36.9
== END 2025-01-13 12:20 | disposition home or self-care (01) ==
PROVIDERS: PCP Nurse Practitioner Family; Visit Provider Nurse Practitioner Family
DX: Z00.00 Encounter for general adult medical examination without abnormal findings (principal); Z12.5 Encounter for screening for malignant neoplasm of prostate

== ENCOUNTER → 2025-01-13 10:55 | Outpatient (BNVA) | payer OTHER, MEDICARE, MEDICAID, SELFPAY | PROVIDERS: PCP Nurse Practitioner Family; Visit Provider Nurse Practitioner Family | DX: Z00.00 Encounter for general adult medical examination without abnormal findings (principal) | CPT/HCPCS: 96127 ==

== ENCOUNTER 2025-01-15 09:53 | Outpatient (REF) | payer OTHER, MEDICARE, MEDICAID, SELFPAY ==
[2025-01-15 13:50] LABS: MANUAL DIFF FLAG NO
[2025-01-15 13:54] LABS: Appearance Urine Turbid; Color Urine Dark Yellow; Glucose Urine UA Negative (Negative); Leukocyte Esterase Urine Negative (Negative); Nitrite Urine Negative (Negative); PH 5.5 (5.0-9.0); Specific Gravity - Urine >= 1.030 (1.005-1.025); Urine Blood Negative (Negative); Urine Ketones Negative (Negative); Urine Protein Negative (Neg-Trace)
[2025-01-15 13:54] LABS: Basophils Absolute Auto 0.1 X10*3/uL (0.0-0.2); Basophils Percent Auto 0.8 % (0-2); Eosinophils Absolute Auto 0.1 X10*3/uL (0.0-0.4); Eosinophils Percent Auto 2.2 % (0-4); Hemoglobin 14.4 g/dl (14.0-18.0); Imm Gran Abs Auto 0.05 X10*3/uL (0.00-0.03); Imm Gran Pct Auto 0.8 % (0.0-0.4); Lymphocytes Absolute Auto 2.1 X10*3/uL (1.2-4.9); Lymphocytes Percent Auto 34.2 % (20-40); Mean Corpuscular HGB Conc 32.7 g/dl (31.0-36.0); Mean Corpuscular Hemoglobin 29.5 pg (27.0-33.0); Mean Corpuscular Volume 90.2 fL (80.0-98.0); Mean Platelet Volume 10.8 fL (9.4-12.4); Monocytes Absolute Auto 0.7 X10*3/uL (0.1-1.2); Monocytes Percent Auto 10.4 % (2-11); Neutrophils Absolute Auto 3.2 x10*3/uL (2.0-8.3); Neutrophils Percent Auto 51.6 % (45-73); Platelet Count 301 X10*3/uL (160-400); Red Blood Count 4.88 X10*6/uL (4.60-5.80); Red Cell Distribution Width 12.9 % (11.0-16.0); White Blood Count 6.3 X10*3/uL (4.8-10.8)
[2025-01-15 14:20] LABS: Alanine Aminotransferase 33 U/L (0-40); Albumin Level 4.1 g/dL (3.5-5.0); Alkaline Phosphatase 44 U/L (39-117); Anion Gap 10 (12-20); Aspartate Amino Transferase 30 U/L (5-37); Blood Urea Nitrogen 13 mg/dL (9-16); Calcium 8.9 mg/dL (8.4-10.2); Carbon Dioxide 28 mmol/L (22-29); Chloride 108 mmol/L (96-108); Cholesterol 126 mg/dL (<200); Estimated Glomerular Filt Rate > 60; Glucose Fasting 98 mg/dL (60-99); HDL Cholesterol 45 mg/dL (>40); LDL Cholesterol Calculated 61 mg/dL (<100); Prostate Specific Antigen Scr 0.28 ng/mL (<0.05-4.0); Sodium 142 mmol/L (135-145); TSH reflex Free T4 1.91 uIU/mL (0.32-4.0); Total Protein 7.5 g/dL (6.5-8.0); Triglycerides 103 mg/dL (<150)
== END 2025-01-15 09:54 | disposition home or self-care (01) ==
LOC: HO.HMGCLDS 09:53
PROVIDERS: PCP Nurse Practitioner Family; Visit Provider Nurse Practitioner Family
DX: Z00.00 Encounter for general adult medical examination without abnormal findings (principal); Z12.5 Encounter for screening for malignant neoplasm of prostate; Z13.6 Encounter for screening for cardiovascular disorders
CPT/HCPCS: 36415; 80053; 80061; 81003; 84153; 84443; 85025

== ENCOUNTER 2025-07-16 08:56 | Outpatient (AMB) | payer OTHER, MEDICAID, SELFPAY ==
[2025-07-16 08:58] VITALS: BP 132/70; PULSE 65; O2SAT 95; BMI 36.8
--- NOTE | 2025-07-16 08:58 | MHC.PC.OV ---
Vital Signs 07/16/25 08:58 Height 6 ft Weight 271 lb BMI 36.8 BP 132/70 Blood Pressure Location Lt brachial Position Sitting Pulse 65 Pulse Source Pulse Oximeter Pulse Oximetry (%) 95 Oxygen Delivery Method Room Air Intake Visit Reasons: 6m follow up Allergies No Known Allergies Allergy (Verified 07/16/25 09:05) Tobacco use date assessed: 01/13/25 Dental Screening Dental Screen Date: 01/13/25 HPI 6m follow up HPI Details Chief Complaint The patient presents for follow-up on hypertension and dyslipidemia. History of Present Illness The patient is a 54-year-old male presenting with hypertension and dyslipidemia. He is currently on a statin and omega-3 supplements for dyslipidemia management and is taking antihypertensive medication. The patient denies experiencing any chest pain, shortness of breath, headaches, or blurred vision, indicating stable control of his conditions. His blood pressure is stable today, and he reports feeling good overall. The patient is noted to be morbidly obese, which is a significant factor in his overall health management. Social History Health Maintenance Review of Systems - Cardiovascular: Denies chest pain. - Respiratory: Denies dyspnea. - Neurological: Denies headaches or blurred vision. Physical Exam General: Cooperative, healthy appearing, comfortable, no acute distress and well developed, morbidly obese Orientation: Patient oriented x3 Limitations: No limitations Head: Normal to inspection Ears: Hearing grossly normal bilaterally Nose: Normal external nose present Face and sinus: Normal facial exam Eyes: Appearance normal, both eyes and all related structures Neck: Normal visual inspection and Yes full ROM Respiratory: Normal respiratory effort and able to speak in complete sentences. Clear to auscultation bilaterally Cardiovascular: Regular rate and rhythm. Normal S1 and S2 GI: Normal to inspection. Soft to palpation and nontender Neuro: Patient oriented x3 Extremities: Normal to inspection Results Plan 1. Essential Hypertension The patient is currently on antihypertensive medication, and his blood pressure is stable today. 2. Dyslipidemia The patient is on a statin and omega-3 supplements for management. 3. Morbid Obesity The patient's morbid obesity is noted as a significant factor in his overall health management. Discussion Notes Patient Instructions [facility] Medical History Fatty liver Postoperative nausea Arthritis Disease of salivary gland, unspecified Hearing loss Adenoma of right parotid gland Hypertension Surgical History Hx of colonoscopy Hx of elbow surgery Hx of parotidectomy History of surgery on arm History of ear surgery Family History Father Prostate CA Social History Housing: House Are you a primary foster care social worker to a significant other at home: No Do you presently have visiting nurse or other home services: No Alcohol intake: current Alcohol intake frequency: holidays/special occasions only Patient Tobacco Use Status: Former Tobacco user Tobacco use type: Cigarette Years Smoked: 4 e-Cigarette/Vaping Use: Never Used Second Hand Smoke Exposure: No service: No Current occupational status: retired Cognitive needs: No Hearing needs: No Vision needs: No Questionnaire PHQ-9 Over the last 2 weeks, how often have you been bothered by any of the following problems? 1. Little interest or pleasure in doing things: more than half the days 2. Feeling down, depressed, or hopeless: more than half the days 3. Trouble falling or staying asleep, or sleeping too much: more than half the days 4. Feeling tired or having little energy: more than half the days 5. Poor appetite or overeating: more than half the days 6. Feeling bad about yourself - or that you are a failure or have let yourself or your family down: more than half the days 7. Trouble concentrating on things, such as reading the newspaper or watching television: more than half the days 8. Moving or speaking so slowly that other people could have noticed. Or the opposite - being so fidgety or restless that you have been moving around a lot more than usual: more than half the days 9. Thoughts that you would be better off or of hurting yourself in some way: more than half the days Total score: 18 Depression Screening Interpretation: Positive (denies any SI or HI, refuses therapist. ) Depression Screening Follow-up: Existing condition Depression Screening Done: Yes Source: Developed by Drs. Kermit Oviedo, Elizabeth Lancaster, Ned Harrell and colleagues, with an educational seb from [employer]. Thrive Questionnaire Date Thrive assessed: 01/13/25 I am a: Patient What is your living situation today?: I have a steady place to live Within the past 12 months, did the food you bought not last and you didn't have the money to get more?: Sometimes True Within the past 12 months, did you worry whether your food would run out before you got money to buy more?: Sometimes True Do you have trouble paying for medicines?: Yes Do you have trouble getting transportation to medical appointments?: Yes Do you have trouble paying your heating and electricity bill?: Yes Do you have trouble taking care of your child, family member or friend?: I choose not to answer this question Do you have trouble with day-to-day activities such as bathing, preparing meals, shopping, managing finances, etc.?: Yes Are you currently unemployed and looking for a job?: I choose not to answer this question Are you interested in more education?: Yes Please select the resources that you would like help with: Utilities Currently or been in a relationship where the following occur: No concerns reported THRIVE Score: 4 AUDIT C Alcohol Use Questionnaire (AUDIT-C) 1. How often do you have a drink containing alcohol?: Never 3. How often do you have six or more drinks on one occasion?: Never Total Score: 0 JESUS-7 AMB Questionnaire JESUS-7 Date JESUS - 7 assessed: 01/13/25 Feeling nervous, anxious, or on edge: 1 = Several days Not being able to stop or control worryin = Several days Worrying too much about different things: 1 = Several days Trouble relaxin = Several days Being so restless that it is hard to sit still: 1 = Several days Becoming easily annoyed or irritable: 2 = More than half the days Feeling afraid as if something awful might happen: 1 = Several days Total JESUS-7 score (0-4 normal; 5-9 mild; 10-14 moderate; 15-21 severe): 8 Source: Developed by Drs. Kermit Oviedo, Elizabeth Lancaster, Ned Harrell and colleagues, with an educational seb from [employer]. JESUS-7 Assessment Billing JESUS-7 Assessment Tool: JESUS-7 Assessment 10165 Physical exam (Primary Care) Vital Signs: Last Vital Signs Pulse 65 07/16/25 08:58 BP 132/70 07/16/25 08:58 Pulse Ox 95 07/16/25 08:58 Oxygen Delivery Method Room Air 07/16/25 08:58 BMI result Body Mass Index 36.8 Tobacco/Smoking Status: Tobacco use Status Tobacco use date assessed 01/13/25 07/16/25 08:59 Patient Tobacco Use Status Former Tobacco user 07/16/25 08:59 Tobacco use type Cigarette 07/16/25 08:59 e-Cigarette/Vaping Use Never Used 07/16/25 08:59 PHQ-9: PHQ-9 Score PHQ-9: Total score 18 07/16/25 09:07 Depression Screening Interpretation: Positive (denies any SI or HI, refuses therapist. ) Depression Screening Follow-up: Existing condition Thrive Assessment: Date of Thrive Assessment Date Thrive assessed 01/13/25 07/16/25 08:59 Currently or been in a relationship where the following occur: No concerns reported Coding Level of Care Code Est Pt Level 3 (28584) Diagnoses Hypertension I10 Dyslipidemia E78.5 Additional Codes JESUS-7 Assessment Billing - JESUS-7 Assessment Tool: JESUS-7 Assessment 73814 ([id number]) Assessment & Plan Assessment & Plan (1) Hypertension: Code(s): I10 - Essential (primary) hypertension Category: Medical (2) Dyslipidemia: Code(s): E78.5 - Hyperlipidemia, unspecified Category: Medical Plan . Orders: Orders Complete Blood Count Auto Diff Today E78.5 - Hyperlipidemia, unspecified, I10 - Essential (primary) hypertension Comprehensive [place]. Panel Fast Today E78.5 - Hyperlipidemia, unspecified, I10 - Essential (primary) hypertension UA CC w/rflx Micro + Cult Today E78.5 - Hyperlipidemia, unspecified, I10 - Essential (primary) hypertension TSH reflex Free T4 Today E78.5 - Hyperlipidemia, unspecified, I10 - Essential (primary) hypertension Lipid Panel Today E78.5 - Hyperlipidemia, unspecified, I10 - Essential (primary) hypertension
--- OUTSIDE RECORDS SUMMARY | 2025-07-16 10:32 | XMS_ITS | Clinical Summary ---
Author Organization [facility] Address [address] [place] [phone] Phone Care Team Providers Care Service Unit Operator Name Role Phone David Clifton BILLING CLINICIAN Primary Care Provider + Allergies No known active allergies Medications losartan-hydroC HLOROthiazide (HYZAAR) 100-12.5 mg per tablet Take 1 tablet by mouth daily. 12/08/2020 Active multivitamins capsule Take 1 capsule by mouth. Active Active Problems No known active problems Family History Medical History Relation Comments Glaucoma Neg Hx Macular degeneration Neg Hx Retinal detachment Neg Hx Social History Tobacco Use Types Packs/Day Years Used Date Smoking Tobacco: Former Smokeless Tobacco: Former Comments:marijuana Alcohol Use Standard Drinks/Week Comments Yes 0 (1 standard drink = 0.6 oz pur e alcohol) socially Education Answer Date Recorded Are you interested in more education? Not on asia e 03/08/2023 Are you concerned about learning? Not on file 03/08/2023 No 03/08/2023 No 03/08/2023 Digital Access Answer Date Recorded No 04/02/2023 No 04/02/2023 No 04/02/2023 Reliable internet access at home? Not on file 04/02/2023 Device with a working camera? Not on file Sex and Gender Information Value Date Recorded Sex Assigned at Not on file Legal Sex Male 5:25 PM EST Gender Identity Not on file Sexual Orientation Not on file Plan of Treatment Health Maintenance Due Date Last Done Comments CREATININE LEVEL 1972 LIPID PANEL 1972 POTASSIUM LEVEL 1972 DEPRESSION SCREENING 1984 SMOKING Hx and SMOKELESS TOBACCO SCREENING 1985 HEPATITIS C SCREENING 1990 HIV ONE-TIME SCREENING (18-6 5 YEARS) 1990 COLOGUARD 2017 COLONOSCOPY 2017 COLORECTAL CANCER SCREENING 2017 FIT TEST 2017 FOBT 2017 SIGMOIDOSCOPY 2017 VIRTUAL COLONOSCOPY 2017 PNEUMOCOCCAL VACCINES (50+ years) (1 of 1 - PCV) 2022 ZOSTER VACCINES (1 of 2) 2022 Adult Td,Tdap Booster 07/07/2024 07/07/2014 COVID-19 VACCINE (3 - 2023-2 5 season) 2024 07/02/2021, 06/04/2021 HEPATITIS A VACCINES Aged Out No long er eligible based on patient's age to complete this topic HIB VACCINES Aged Out No longer eligi ble based on patient's age to complete this topic MENINGOCOCCAL VACCINES (ACWY) Aged Out No longer eligible based on patient's age to complete this topic MENINGOCOCCAL VACCINES (B) Aged Out N o longer eligible based on patient's age to complete this topic Medical Devices Not on file Insurance MEDICARE PART A & B MEDICARE PART A & B MEDICARE PART A & B MEDICARE PART A & B MEDICARE PART A & B MEDICARE PART A & B MEDICARE PART A & B MEDICARE PART A & B MEDICARE PART A & B MEDICARE PART A & B [facility] POS EPO Care Teams Service Unit Operator Relationship Specialty Start Date End Date David Clifton NP [address] [place] [address] PCP - General Nurse Practitioner 01/08/25 Additional Source Comments The information contained in this document represents components of the legal health record. It is not the complete legal health record.[facility]
== END 2025-07-16 10:11 | disposition home or self-care (01) ==
LOC: HO.HMCC 08:57
PROVIDERS: PCP Nurse Practitioner Family; Visit Provider Nurse Practitioner Family
DX: I10 Essential (primary) hypertension (principal); E78.5 Hyperlipidemia, unspecified

== ENCOUNTER → 2025-07-16 08:56 | Outpatient (BNVA) | payer OTHER, SELFPAY | PROVIDERS: PCP Nurse Practitioner Family; Visit Provider Nurse Practitioner Family | DX: I10 Essential (primary) hypertension (principal); E78.5 Hyperlipidemia, unspecified; E66.01 Morbid (severe) obesity due to excess calories; Z68.36 Body mass index [BMI] 36.0-36.9, adult | CPT/HCPCS: 96127; 99212 ==

== ENCOUNTER 2025-07-29 09:47 | Outpatient (REF) | payer OTHER, SELFPAY ==
--- OUTSIDE RECORDS SUMMARY | 2025-07-29 11:46 | XMS_ITS | Clinical Summary ---
Author Organization [facility] Address [address] [place] [phone] Phone Care Team Providers Care Title Manager Name Role Phone David Clifton ANTISQUEAK FILLER Primary Care Provider + Allergies No known [...] HEPATITIS C SCREENING 1990 HIV ONE-TIME SCREENING (18-65 YEARS) 1990 COLOGUARD 2017 COLONOSCOPY 2017 COLORECTAL CANCER SCREENING 2017 FIT TEST 2017 FOBT 2017 SIGMOIDOSCOPY 2017 VIRTUAL COLONOSCOPY 2017 PNEUMOCOCCAL VACCINES (50+ years) (1 of 1 - PCV) 2022 ZOSTER VACCINES (1 of 2) 2022 Adult Td,Tdap Booster 07/07/2024 07/07/2014 INFLUENZA VACCINE (#1) 2025 , 09/04/2019, 08/27/2018, Additional history exists COVID-19 VACCINE ( season) 2025 07/02/2021, 06/04/2021 HEPATITIS A VACCINES Aged Out [...] & B MEDICARE PART A & B [facility] POS EPO Care Teams Title Manager Relationship Specialty Start Date End Date David Clifton NP [address] [id number] PCP - General Nurse Practitioner 01/08/25 Additional Source Comments The information contained in this document represents components of the legal health record. It is not the complete legal health record.[facility]
[2025-07-29 13:27] LABS: Appearance Urine Turbid; Glucose Urine UA Negative (Negative); PH 5.5 (5.0-9.0); Specific Gravity - Urine 1.025 (1.005-1.025)
[2025-07-29 13:41] LABS: MANUAL DIFF FLAG NO
[2025-07-29 13:45] LABS: Hematocrit 45.1 % (42.0-52.0); Hemoglobin 15.1 g/dl (14.0-18.0); Imm Gran Abs Auto 0.05 X10*3/uL (0.00-0.03); Imm Gran Pct Auto 0.6 % (0.0-0.4); Lymphocytes Absolute Auto 2.1 X10*3/uL (1.2-4.9); Mean Corpuscular HGB Conc 33.5 g/dl (31.0-36.0); Mean Corpuscular Hemoglobin 30.6 pg (27.0-33.0); Mean Corpuscular Volume 91.3 fL (80.0-98.0); NRBC Abs Auto 0.000 X10*3/uL (0.0-0.012); NRBC Pct Auto 0.0 /100WBC (0.0-0.2); Platelet Count 273 X10*3/uL (160-400); Red Blood Count 4.94 X10*6/uL (4.60-5.80); White Blood Count 8.0 X10*3/uL (4.8-10.8)
[2025-07-29 14:23] LABS: Alanine Aminotransferase 45 U/L (0-40); Albumin Level 4.2 g/dL (3.5-5.0); Alkaline Phosphatase 50 U/L (39-117); Anion Gap 10 (12-20); Aspartate Amino Transferase 36 U/L (5-37); Blood Urea Nitrogen 13 mg/dL (9-16); Calcium 9.7 mg/dL (8.4-10.2); Carbon Dioxide 28 mmol/L (22-29); Chloride 104 mmol/L (96-108); Cholesterol 162 mg/dL (<200); Estimated Glomerular Filt Rate > 60; HDL Cholesterol 48 mg/dL (>40); Potassium 4.0 mmol/L (3.3-5.1); Sodium 138 mmol/L (135-145); Total Protein 7.1 g/dL (6.5-8.0); Triglycerides 187 mg/dL (<150)
== END 2025-07-29 09:48 | disposition home or self-care (01) ==
LOC: HO.HMGCLDS 09:47
PROVIDERS: PCP Nurse Practitioner Family; Visit Provider Nurse Practitioner Family
DX: I10 Essential (primary) hypertension (principal); E78.5 Hyperlipidemia, unspecified
CPT/HCPCS: 36415; 80053; 80061; 81003; 84443; 85025